=== PATIENT | female | born 1960 | race Caucasian/White ===

== ENCOUNTER 2016-06-10 14:07 | Emergency (ER) | payer BC, OTHER ==
[2016-06-10 15:41] VITALS: BP 132/72
[2016-06-10] MEDS ORDERED: Ipratropium 0.5MG/2.5ML NEB* 0.5 MG/2.5 ML NEB.SOLN INH ONE (16:16)
[2016-06-10] MEDS ORDERED: Albuterol 2.5 MG/3 ML NEB.SOL* (0.083%) INH ONE (16:16)
--- NOTE | 2016-06-10 16:29 | RAD ---
INDICATION: Throat pain, fume inhalation. COMPARISON: Comparison is made with a prior chest x-ray study from January 28, 2016. TECHNIQUE: Dual-energy PA and lateral views of the chest were obtained. FINDINGS: The heart is within normal limits in size. Mediastinal and hilar contours appear within normal limits. The lungs are clear. No pleural effusion is present. IMPRESSION: NO EVIDENCE FOR ACTIVE CARDIOPULMONARY DISEASE.
--- NOTE | 2016-06-10 16:33 | RAD ---
INDICATION: Occupational exposure COMPARISON: None TECHNIQUE: A two-view soft tissue neck was performed FINDINGS: The soft tissue elements but the neck are normal. The cause is normal. Airway is widely patent. The osseous structures are normal IMPRESSION: NORMAL STUDY.
--- NOTE | 2016-06-10 17:20 | UC ---
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 AT TIME ASTHMA BEGAN TO FLARE UP. TOOK NEBULIZER AT HOME. LUNGS FEEL INFLAMED. HAS BEEN COUGHING AND THROAT IS SORE. - History of Current Complaint Chief Complaint: UCRespiratory Stated Complaint: BREATHING ISSUE Time Seen by Provider: 06/10/16 15:44 Hx Obtained From: Patient Onset/Duration: Sudden Onset, Lasting Hours, Still Present Timing: Intermittent Episodes Character: Cough: Nonproductive Aggravating Factors: Allergens, Deep Breaths Alleviating Factors: Nothing Associated Signs And Symptoms: Positive: Wheezing, URI - Risk Factors Pulmonary Embolism Risk Factors: Negative Pseudomonas Risk Factors: Negative Tuberculosis Risk Factors: Negative - Allergies/Home Medications Allergies/Adverse Reactions: Allergies Allergy/AdvReac Type Severity Reaction Status Date / Time No Known Allergies Allergy Verified 06/10/16 15:35 PMH/Surg Hx/FS Hx/Imm Hx Previously Healthy: Yes Endocrine History Of: Denies: Diabetes, Thyroid Disease Cardiovascular History Of: Denies: Cardiac Disorders, Hypertension, Pacemaker/ICD Respiratory History Of: Reports: Asthma, Bronchitis Denies: COPD GI/ History Of: Denies: Ulcer, Renal Disease - Surgical History Surgical History: Yes Surgery Procedure, Year, and Place: TONSILS OUT AGE 18 - Family History Known Family History: Negative: Renal Disease, Respiratory Disease - Social History Occupation: Employed Full-time Lives: With Family Alcohol Use: Occasionally Substance Use Type: None Smoking Status (MU): Light Every Day Tobacco Smoker Type: Cigarettes Amount Used/How Often: 3-4 cigarettes/day Have You Smoked in the Last Year: Yes Household Exposure Type: Cigarettes Cessation Counseling: Patient Advised to Stop Review of Systems Constitutional: Negative Skin: Negative Eyes: Negative ENT: Negative Respiratory: Shortness Of Breath, Cough Cardiovascular: Negative Gastrointestinal: Negative Genitourinary: Negative Motor: Negative Neurovascular: Negative Musculoskeletal: Negative Neurological: Negative Psychological: Negative All Other Systems Reviewed And Are Negative: Yes Physical Exam Triage Information Reviewed: Yes Appearance: Well-Appearing, No Pain Distress, Well-Nourished Vital Signs: Initial Vital Signs Temp 97 F 06/10/16 15:37 Pulse 87 06/10/16 15:37 Resp 18 06/10/16 15:37 BP 132/72 06/10/16 15:37 Pulse Ox 96 06/10/16 15:37 Vital Signs Reviewed: Yes Eye Exam: Normal Eyes: Positive: Conjunctiva Clear ENT Exam: Normal ENT: Positive: Normal ENT inspection, Hearing grossly normal, Pharynx normal, TMs normal Dental Exam: Normal Neck exam: Normal Neck: Positive: Supple, Nontender, No Lymphadenopathy Respiratory: Positive: Chest non-tender, Lungs clear, Normal breath sounds, No respiratory distress, No accessory muscle use, Wheezing Cardiovascular Exam: Normal Cardiovascular: Positive: RRR, No Murmur, Pulses Normal, Brisk Capillary Refill Abdominal Exam: Normal Abdomen Description: Positive: Nontender, No Organomegaly Musculoskeletal Exam: Normal Musculoskeletal: Positive: Strength Intact, ROM Intact Neurological Exam: Normal Psychological Exam: Normal Psychological: Positive: Normal Response To Family Skin Exam: Normal UC Diagnostic Evaluation - Laboratory O2 Sat by Pulse Oximetry: 96 Respiratory Course/Dx - Differential Dx/Diagnosis Differential Diagnosis/HQI/PQRI: Bronchitis, Influenza, Sinusitis Provider Diagnoses: ASTHMA EXACERBATION. IRRITANT INHALATION Discharge - Discharge Plan Condition: Stable Disposition: HOME Patient Education Materials: Asthma (ED), Reactive Airways Disease (ED), Bronchospasm (ED) Referrals: Sherrell Estrella MD [Primary Care Provider] -
== END 2016-06-10 17:39 | disposition home or self-care (01) ==
LOC: UCEAST 14:07
DX: J45.901 Unspecified asthma with (acute) exacerbation (principal); T59.891A Toxic effect of other specified gases, fumes and vapors, accidental (unintentional), initial encounter; Y92.9 Unspecified place or not applicable; F17.210 Nicotine dependence, cigarettes, uncomplicated
CPT/HCPCS: 70360; 71020; 99212; G0463; J7644

== ENCOUNTER → 2018-09-27 13:38 | Emergency (ER) | payer OTHER ==
[~2018-09-27 13:38] MED LIST: Iohexol 300* (CONTRAST) 10 ML SDV IV ONE; Morphine 4 MG/ML VIAL (1 ml) 4 MG/ML VIAL IV ONE; NS 0.9% 1000 ML** 1,000 ML IV ONE; Ondansetron INJ* 2 MG/ML VIAL IV ONE
[2018-09-27 14:09] LABS: ABS Basophils 0.1 10^3/ul (0-0.2); ABS Eosinophils 0.2 10^3/ul (0-0.6); ABS Lymphocytes 2.7 10^3/ul (1.0-4.8); ABS Monocytes 0.5 10^3/ul (0-0.8); ABS Neutrophils 2.1 10^3/ul (1.5-7.7); Eosinophil % 3.2 %; Hematocrit 38 % (35-47); Hemoglobin 12.8 g/dL (12.0-16.0); Lymphocyte % 48.4 %; Mean Corpuscular HGB Conc 34 g/dL (31-36); Mean Corpuscular Hemoglobin 30 pg (27-31); Mean Corpuscular Volume 89 fL (80-97); Mean Platelet Volume 6.8 fL (7.4-10.4); Nucleated Red Blood Cells % 0.1; Platelet Count 289 10^3/uL (150-450); Red Blood Count 4.26 10^6 /uL (3.70-4.87); Red Cell Distribution Width 14 % (10.5-15); White Blood Count 5.5 10^3/uL (3.5-10.8)
[2018-09-27 14:21] LABS: INR 1.01 (0.82-1.09)
[2018-09-27 14:31] LABS: Albumin/Globulin Ratio 1.6 (1-3); BUN/Creatinine Ratio 18.3 (8-20); Calcium 9.2 mg/dL (8.6-10.3); EGFR African American 102.3 (>60); EGFR Non-African American 84.6 (>60); Globulin 2.5 g/dL (2-4); Total Bilirubin 0.3 mg/dL (0.2-1.0); Total Protein 6.5 g/dL (6.4-8.9); Troponin I 0.01 ng/mL (<0.04)
--- NOTE | 2018-09-27 15:08 | ED ---
Abdominal Pain/Female - HPI Summary HPI Summary: Pt. is a 58 y.o female who presents to the ER for right lower abd. pain that started today. Pt. describes pain as sharp and constant in nature. NO modifying factors. Pt. notes associated nausea. Denies diarrhea, urinary sxs, CP, SOB, fever. Pt. notes that pain radiates to epigastric region. Past hx of asthma and chronic back pain. Pt. states she has a rx for oxycodone for her back pain that she states she does not take too frequently. Pt. states she did take a dose today without improvement of pain. Symptoms are moderate in severity. - History of Current Complaint Chief Complaint: EDChestPainROMI Stated Complaint: RIGHT ABD/BACK/CHEST PAIN/SOB PER PT Time Seen by Provider: 09/27/18 15:00 Hx Obtained From: Patient Pain Intensity: 10 Allergies/Adverse Reactions: Allergies Allergy/AdvReac Type Severity Reaction Status Date / Time No Known Allergies Allergy Verified 06/10/16 15:35 PMH/Surg Hx/FS Hx/Imm Hx Previously Healthy: Yes Endocrine/Hematology History: Denies: Hx Diabetes, Hx Thyroid Disease Cardiovascular History: Denies: Hx Hypertension, Hx Pacemaker/ICD Respiratory History: Reports: Hx Asthma Denies: Hx Chronic Obstructive Pulmonary Disease (COPD) GI History: Denies: Hx Ulcer History: Denies: Hx Renal Disease Musculoskeletal History: Reports: Hx Arthritis - L5, Hx Back Problems - chronic back pain Sensory History: Denies: Hx Hearing Aid Neurological History: Reports: Other Neuro Impairments/Disorders - PAIN CLINIC PT Psychiatric History: Denies: Hx Panic Disorder - Cancer History Hx Chemotherapy: No Hx Radiation Therapy: No - Surgical History Surgery Procedure, Year, and Place: TONSILS OUT AGE 18 Infectious Disease History: No Infectious Disease History: Denies: Hx Hepatitis, Hx Human Immunodeficiency Virus (HIV), Traveled Outside the [place] in Last 30 Days - Family History Known Family History: Positive: Non-Contributory Negative: Renal Disease, Respiratory Disease - Social History Occupation: Employed Full-time Lives: Alone Alcohol Use: Occasionally Substance Use Type: Reports: None Hx Tobacco Use: Yes Smoking Status (MU): Light Every Day Tobacco Smoker Type: Cigarettes Amount Used/How Often: 3-4 cigarettes/day Have You Smoked in the Last Year: Yes Review of Systems Constitutional: Negative Negative: Fever, Chills Cardiovascular: Negative Respiratory: Negative Positive: Abdominal Pain, Nausea. Negative: Vomiting, Diarrhea Genitourinary: Negative Negative: dysuria, flank pain Musculoskeletal: Negative Skin: Negative Neurological: Negative All Other Systems Reviewed And Are Negative: Yes Physical Exam Triage Information Reviewed: Yes Vital Signs On Initial Exam: Initial Vitals Temp Pulse Resp BP Pulse Ox 98.1 F 83 20 118/76 99 09/27/18 13:48 09/27/18 13:48 09/27/18 13:48 09/27/18 13:48 09/27/18 13:48 Vital Signs Reviewed: Yes Appearance: Positive: Pain Distress - Pt .lying in bed holding her right side. Appears in pain but nontoxic. Skin: Positive: Warm, Dry Head/Face: Positive: Normal Head/Face Inspection Eyes: Positive: Normal, EOMI, LILA Neck: Positive: Supple Respiratory/Lung Sounds: Positive: Clear to Auscultation, Breath Sounds Present Cardiovascular: Positive: Normal, RRR Abdomen Description: Positive: Other: - Obese. Abd is soft with tenderness to RLQ. NO rebound or guarding.. Negative: CVA Tenderness (R), CVA Tenderness (L) Musculoskeletal: Positive: Normal, Strength/ROM Intact Neurological: Positive: Normal, CN Intact II-III Psychiatric: Positive: Affect/Mood Appropriate Diagnostics - Vital Signs Vital Signs Temp Pulse Resp BP Pulse Ox 09/27/18 13:48 98.1 F 83 20 118/76 99 - Laboratory Lab Results: Lab Results 09/27/18 09/27/18 09/27/18 Range/Units 14:03 14:03 14:03 WBC 5.5 (3.5-10.8) 10^3/uL RBC 4.26 (3.70-4.87) 10^6 /uL Hgb 12.8 (12.0-16.0) g/dL Hct 38 (35-47) % MCV 89 (80-97) fL MCH 30 (27-31) pg MCHC 34 (31-36) g/dL RDW 14 (10.5-15) % Plt Count 289 (150-450) 10^3/uL MPV 6.8 L (7.4-10.4) fL Neut % (Auto) 39.0 % Lymph % (Auto) 48.4 % [place] % (Auto) 8.3 % Eos % (Auto) 3.2 % Baso % (Auto) 1.1 % Absolute Neuts (auto) 2.1 (1.5-7.7) 10^3/ul Absolute Lymphs (auto) 2.7 (1.0-4.8) 10^3/ul Absolute Monos (auto) 0.5 (0-0.8) 10^3/ul Absolute Eos (auto) 0.2 (0-0.6) 10^3/ul Absolute Basos (auto) 0.1 (0-0.2) 10^3/ul Absolute Nucleated RBC 0.0 10^3/ul Nucleated RBC % 0.1 INR (Anticoag Therapy) 1.01 (0.82-1.09) Sodium 138 (135-145) mmol/L Potassium 4.0 (3.5-5.0) mmol/L Chloride 106 (101-111) mmol/L Carbon Dioxide 25 (22-32) mmol/L Anion Gap 7 (2-11) mmol/L BUN 13 (6-24) mg/dL Creatinine 0.71 (0.51-0.95) mg/dL Est GFR ( Amer) 102.3 (>60) Est GFR (Non-Af Amer) 84.6 (>60) BUN/Creatinine Ratio 18.3 (8-20) Glucose 90 (70-100) mg/dL Calcium 9.2 (8.6-10.3) mg/dL Total Bilirubin 0.30 (0.2-1.0) mg/dL AST 17 (13-39) U/L ALT 15 (7-52) U/L Alkaline Phosphatase 67 (34-104) U/L Troponin I 0.01 (<0.04) ng/mL Total Protein 6.5 (6.4-8.9) g/dL Albumin 4.0 (3.2-5.2) g/dL Globulin 2.5 (2-4) g/dL Albumin/Globulin Ratio 1.6 (1-3) Result Diagrams: 09/27/18 14:03 09/27/18 14:03 Lab Statement: Any lab studies that have been ordered have been reviewed, and results considered in the medical decision making process. Abdominal Pain Fem Course/Dx - Course Course Of Treatment: Pt. presenting with right LQ pain. She is afebrile with stable VS. Pt. started on iv fluids and given pain medications. Labs and CT ordered for further evaluation. ECG done at 1342 shows a sinus rhythm of 85bpm, normal axis, no ST elevation. Blood work is unremarkable. CT scan shows no acute findings, does not large amount of stool. On re-exam pt. is resting more comfortably. Family now present. Results discussed. Pt. pain may be secondary to constipation. Recommend miralax or mag citrate. Educated that narcotics cause constipation. Advised close f.u with PCP for further evaluation. Pt. also notes she is being set up for a colonoscopy. Will return if sxs change or worsen. Pt. and family understand and agree with plan. - Diagnoses Differential Diagnosis: Positive: Appendicitis, Bowel Obstruction, Constipation , Diverticulitis, Hepatitis, Irritable Bowel Syndrome, Peptic Ulcer Disease, Renal Colic, Urinary Tract Infection Provider Diagnoses: Abdominal pain, Constipation Discharge - Sign-Out/Discharge Documenting (check all that apply): Patient Departure Patient Received Moderate/Deep Sedation with Procedure: No - Discharge Plan Condition: Improved Disposition: HOME Prescriptions: Ondansetron TAB* [Zofran 4 MG Tab*] 4 mg PO Q6H PRN #12 tab PRN Reason: Pain Patient Education Materials: Constipation (ED), Acute Abdominal Pain (ED) Referrals: Sherrell Estrella MD [Primary Care Provider] - Additional Instructions: Call PCP tomorrow for a close follow up appointment and referral for colonoscopy Recommend taking an over the counter laxative such as Miralax or magnesium citrate Increase fluids and fiber in diet Can take home pain medication if needed but this will increase constipation Return to ER for increased pain, fever, vomiting or if concerned - Billing Disposition and Condition Condition: IMPROVED Disposition: Home
[2018-09-27 17:13] LABS: Urine Appearance Clear; Urine Bilirubin Negative (Negative); Urine Blood Negative (Negative); Urine Color Straw; Urine Glucose Negative (Negative); Urine Ketones Trace (Negative); Urine Nitrite Negative (Negative); Urine Protein Negative (Negative); Urine Specific Gravity 1.034 (1.010-1.030); Urine Urobilinogen Negative (Negative)
[2018-09-27 18:04] VITALS: BP 126/82
== END | disposition home or self-care (01) ==
LOC: ED 13:38
DX: R10.31 Right lower quadrant pain (principal); K59.00 Constipation, unspecified; F17.210 Nicotine dependence, cigarettes, uncomplicated
CPT/HCPCS: 36415; 74177; 80053; 81003; 83605; 84484; 85025; 85610; 93005; 96361; 96374; 99283; J2270; J2405; Q9967